=== PATIENT | female | born 1955 | race Caucasian/White ===

== ENCOUNTER → 2017-03-13 | Outpatient (CLI) | payer MEDICARE, OTHER ==
[2016-06-08 14:48] VITALS: BP 122/89
[~2017-03-13] MED LIST: ALBU2.5V5 NEB; ALPR0.5T6 PO; BUPR150T11 PO; CARI350T14 PO; DICL100G18 TP; DICY20TA30 PO; DOXY100T PO; FLUO40CA2 PO; GABA-586 PO; GABA-587 PO; GADOBUTROL 7.5 MMOL/7.5 ML VIAL IV ONE; HYDR-971 PO; IBUP-1007 PO; LIDO700A4 TP; METH5TAB6 PO; NAPR500T3; ONDA4TAB10 SL; OXYC15TA PO; OXYC5TAB PO; VALA1000 PO
--- NOTE | 2017-03-13 17:03 | RAD ---
MRI of the cervical spine without and with contrast 03/13/2017 CLINICAL HISTORY: Extremity weakness, right greater than left with history of neck fusion. Technique: Unenhanced T1-weighted, T2-weighted and inversion recovery sagittal and gradient echo, T2-weighted and T1-weighted axial images of the cervical spine were obtained. After the intravenous administration of 6 cc of Gadavist, enhanced T1-weighted sagittal and axial images of the cervical spine were obtained. FINDINGS: Comparison is made to a CT scan of the cervical spine dated 05/30/2016. There is reversal of the normal cervical lordosis. The patient is status post laminectomy at C1. Magnetic susceptibility artifact related to stabilizing rods and plates and pedicle screws are seen extending from the posterior C2 vertebrae, superiorly, unchanged. The patient is status post laminectomy extending from C3-4 to T1. Marked loss of height of the C5-6 and C7-T1 disc spaces is again seen. Degenerative signal changes are seen involving all the disks of the cervical spine. Degenerative signal changes are seen within the marrow surrounding these discs. No definite area of abnormal signal intensity is seen involving the cervical spinal cord. At the C2-3 disc space there is a minimal generalized disc bulge. Degenerative changes are seen involving the facet joints and uncovertebral joints bilaterally. These findings do not result in significant central spinal canal or neural foraminal stenosis. At the C3-4 disc space there is a moderate generalized disc bulge. Degenerative changes are seen involving the uncovertebral and facet joints bilaterally. Hypertrophy of the soft tissues posterior to the cervical spinal cord is seen. These findings efface the anterior and posterior CSF resulting in moderate central spinal canal stenosis with moderate cord impingement. The fusion superior to this along with the reversed cervical lordosis and central spinal canal stenosis causes the cervical spinal cord to be kinked at this level. Mild bilateral neural foraminal stenosis is seen. At the C4-5 disc space there is a mild generalized disc bulge. Degenerative changes are seen involving the uncovertebral and facet joints, right greater than left. These findings do not result in significant central spinal canal stenosis. No neural foraminal stenosis is seen. At the C5-6, C6-7 and C7-T1 disc spaces there are minimal generalized disc bulges. Degenerative changes are seen involving the uncovertebral and facet joints. These findings do not result in significant central spinal canal or neural foraminal stenosis. IMPRESSION: 1. Extensive postsurgical changes are seen involving the cervical spine as outlined above. 2. Degenerative changes are seen involving the cervical spine. These findings result in moderate central spinal canal stenosis with moderate cord impingement at C3-4. Mild bilateral neural foraminal stenosis is seen at C3-4. Electronically signed by: Hieu Mendoza MD (03/13/2017 4:59 PM)
== END | disposition home or self-care (01) ==
LOC: MRI 14:17
PROVIDERS: ATTEND Family Medicine
DX: M46.20 Osteomyelitis of vertebra, site unspecified (principal); R29.898 Other symptoms and signs involving the musculoskeletal system; R20.0 Anesthesia of skin; R20.2 Paresthesia of skin; J44.9 Chronic obstructive pulmonary disease, unspecified; J45.909 Unspecified asthma, uncomplicated; Z87.19 Personal history of other diseases of the digestive system
CPT/HCPCS: 72156; A9585

== ENCOUNTER 2017-03-17 09:11 | Observation (INO) | payer MEDICARE, OTHER ==
[~2017-03-17] VITALS: Ht 160 cm; Wt 50.8 kg
[~2017-03-17 09:11] MED LIST changes: -GABA-587 PO; -GADOBUTROL 7.5 MMOL/7.5 ML VIAL IV ONE; -NAPR500T3; -OXYC5TAB PO; -VALA1000 PO
[2017-03-17] MEDS ORDERED: GABA-587 PO (09:25)
[2017-03-17] MEDS ORDERED: MORPHINE SULFATE 4 MG/ML DISP.SYRIN. IV ONE (09:45)
[2017-03-17] MEDS ORDERED: ONDANSETRON PF 4 MG/2 ML VIAL. IV ONE (09:45)
[2017-03-17 10:02] LABS: POTASSIUM ISTAT 4.5 mmol/L (3.5-5.0)
[2017-03-17] MEDS ORDERED: DEXAMETHASONE SOD PHOS 20 MG/5 ML VIAL. IV ONE (10:15)
--- NOTE | 2017-03-17 10:30 | PHYS DOC ---
Past Medical History Past Medical History: Asthma, Hepatitis Additional Past Medical Histor: HEPATITIS C, HYPOTHYROID, DDD, CHRONIC BACK PAIN Past Surgical History: Additional Past Surgical Histo: BACK/NECK Alcohol Use: None Drug Use: None Adult General Chief Complaint Chief Complaint: Neck Pain HPI HPI Patient is a 61 year old female who presents with neck pain, upper extremity weakness and ataxia, left foot weakness and numbness. Pt's had multiple problems with her neck and back in the past, h/o laminectomy of her neck and also procedures to the lower. Pt awoke this morning with "worse pain I've ever had" at the base of the neck and to bilateral arms. She has numbness and tingling to bilateral arms, which she reports is new. She also has difficulty moving her arms in coordinated fashion, which is also new. She also has worsening numbness of her left medial distal foot. Reports her "normal" ataxia is worse today. Review of Systems Review of Systems Constitutional: Denies fever or chills [] Eyes: Denies change in visual acuity, redness, or eye pain [] HENT: Denies nasal congestion or sore throat [] Respiratory: Denies cough or shortness of breath [] Cardiovascular: denies chest pain GI: Denies abdominal pain, nausea, vomiting, bloody stools or diarrhea [] : Denies dysuria or hematuria [] Musculoskeletal: Denies joint pain [] Integument: Denies rash or skin lesions [] Neurologic: Denies headache Endocrine: Denies polyuria or polydipsia [] Current Medications Current Medications Current Medications Medications (Trade) Dose Ordered Sig/[facility] Start Time Stop Time Status Last Admin Dose Admin Morphine Sulfate 4 mg 1X ONCE 03/17/17 09:45 03/17/17 09:46 DC 03/17/17 10:05 4 MG Ondansetron HCl (Zofran) 4 mg 1X ONCE 03/17/17 09:45 03/17/17 09:46 DC 03/17/17 10:05 4 MG Allergies Allergies Allergies Coded Allergies Type Severity Reaction Last Updated Verified I S O L A T I O N *CONTACT* Allergy Unknown 02/09/16 Yes No Known Medication Allergies Allergy Unknown 02/09/16 Yes Physical Exam Physical Exam Constitutional: Well developed, well nourished, no acute distress, non-toxic appearance. [] HENT: Normocephalic, atraumatic, bilateral external ears normal, oropharynx moist, no oral exudates, nose normal. [] Eyes: PERRLA, EOMI, conjunctiva normal, no discharge. [] Neck: diffuse lower spine ttp without stepoffs, straightening Cardiovascular:Heart rate regular with regular rhythm, no murmur [] Lungs & Thorax: Bilateral breath sounds clear to auscultation [] Abdomen: Bowel sounds normal, soft, no tenderness, no masses, no pulsatile masses. [] Skin: Warm, dry, no erythema, no rash. [] Back: No midline tenderness, straigtening of normal lordosis, no CVA tenderness. [] Extremities: No tenderness, no cyanosis, no clubbing, ROM intact, no edema. [] Neurologic: Alert and oriented X 3, normal motor function, normal sensory function, no focal deficits noted. [] Psychologic: Affect normal, judgement normal, mood normal. [] Current Patient Data Vital Signs Vital Signs Date Time Temp Pulse Resp B/P (MAP) Pulse Ox O2 Delivery O2 Flow Rate FiO2 03/17/17 09:43 86 24 121/75 (90) 98 Room Air 03/17/17 09:14 99.2 99.2 Lab Values Laboratory Tests Test 03/17/17 09:55 POC Hemoglobin 12.9 g/dL (12-15) POC Hematocrit 38 % (36-40) POC Sodium 140 mmol/L (135-145) POC Potassium 4.5 mmol/L (3.5-5.0) POC Chloride 106 mmol/L (98-110) POC Total CO2 24 mmol/L (23-32) Anion Gap 15 mmol/L (6-14) H POC Blood Urea Nitrogen 18 mg/dL (8-26) POC Creatinine 0.7 mg/dL (0.5-1.4) Glucose Level 95 mg/dL (70-99) POC Ionized Calcium (Alisson) 1.14 mmol/L (1.13-1.32) Laboratory Tests 03/17/17 09:55 EKG EKG [] Radiology/Procedures Radiology/Procedures Reviewed prior MRI CT[] Course & Med Decision Making Course & Med Decision Making Pertinent Labs and Imaging studies reviewed. (See chart for details) Pt give IV morphine for pain. Discussed with Dr. Baig, neurosurgery head refrigeration engineer, as pt does not actively have a neurosurgeon she is following with. As pt is having new neurologic symptoms reported, recommends monitoring here or transfer to . I discussed with the patient and she wants to stay at our hospital for further treatment. Pt given IV dexamethasone, I discussed with Dr. Crawley, who accepted the pt for Dr. Corey. Pt to get po pain meds while inpt and asks for PT evaluation. Interim orders placed. Dragon Disclaimer Dragon Disclaimer This electronic medical record was generated, in whole or in part, using a voice recognition dictation system. Departure Departure Impression: Primary Impression: Neck pain Disposition: ADMITTED INPATIENT Admitting Physician: Onur Cameron Condition: STABLE Referrals: ONUR COREY MD (PCP) ODILON VLEEZ MD Mar 17, 2017 10:30
[2017-03-17 10:50] VITALS: BP 105/63
--- NOTE | 2017-03-17 12:12 | ACF ---
Admission Forms Criteria PAIN MANAGEMENT GR Clinical Indications for Admission to Inpatient Care (Place 'X' for any and all applicable criteria): Hospital admission is needed for appropriate care of the patient because of 1 or more of the following are present (1)(2)(3)(4)(5): [X]I. Severe pain requiring acute inpatient management as indicated by 1 or more of the following (2)(5)(10): [X]a) Continuous or frequent (eg, every 2 to 4 hours) parenteral analgesics required [A] [ ]b) Necessity (ie, alternative approaches not effective) for analgesic regimen that can only be performed or initiated in inpatient setting [ ]II. Pain causing debilitation to the point of inability to function or be supported at any other level of care [ ]III. Severe side effects from pain medications as indicated by ANY ONE of the following (12)(13)(14)(15): [ ]a) Uncontrollable seizures [ ]b) Cardiac arrhythmias of immediate concern [ ]c) Dehydration that is severe or persistent [ ]d) Vomiting that is severe or persistent [ ]e) Altered mental status that is severe or persistent [ ]f) Obstipation with inadequate GI function to maintain nutrition The original [employer] content created by [employer] has been revised. The portions of the content which have been revised are identified through the use of italic text or in bold, and [employer] has neither reviewed nor approved the modified material. All other unmodified content is copyright [employer]. Please see references footnoted in the original [employer] edition 2016 Admission Criteria Met?: Yes AVINASH LEYVA Mar 17, 2017 12:12
--- NOTE | 2017-03-17 13:02 | PDOC2 ---
CONSULT Date of Consult Date of Consult DATE: 03/17/17 TIME: 12:59 Reason for Consult Reason for Consult: cervical stenosis History of Present Illness Reason for Visit: bilateral hand numbness, increased posterior neck and periscapular pain, difficulty with fine motor in hands, chronic gait disturbance - feels may be slightly worse, denies bowel/bladder changes, subjective functional weakness, denies discrete focal weakness Past Medical History Cardiovascular: HTN Pulmonary: Asthma CENTRAL NERVOUS SYSTEM: Other GI: No pertinent hx Heme/Onc: No pertinent hx Hepatobiliary: Hep A/B/C Psych: Anxiety, Depression Musculoskeletal: low back pain Rheumatologic: No pertinent hx Renal/: No pertinent hx Endocrine: Other Past Surgical History Past Surgical History: Other Family History Family History: Asthma, Cancer, Depression, Diabetes, Heart Disease, Hypertension Social History ALCOHOL: none Drugs: Other Current Problem List Problem List Problems Medical Problems: (1) Neck pain Status: Acute Current Medications Current Medications Current Medications Morphine Sulfate 4 mg 1X ONCE IV Last administered on 03/17/17 10:05; Start at 09:45; Stop 03/17/17 at 09:46; Status DC Ondansetron HCl (Zofran) 4 mg 1X ONCE IV Last administered on 03/17/17 10:05; Start 03/17/17 at 09:45; Stop 03/17/17 at 09:46; Status DC Dexamethasone Sodium Phosphate (Decadron) 10 mg 1X ONCE IV Last administered on 03/17/17 10:05; Start 03/17/17 at 10:15; Stop 03/17/17 at 10:16; Status DC Oxycodone HCl (Roxicodone) 5 mg PRN Q6HRS PRN PO PAIN; Start 03/17/17 at 10:15 Active Scripts Active Gabapentin 300 Mg Capsule 900 Mg PO TID 30 Days Doxycycline Hyclate 100 Mg Tablet 100 Mg PO BID 30 Days Albuterol Sulfate Neb Soln (Albuterol Sulfate) 2.5 Mg/3 Ml Vial.neb 2.5 Mg NEB PRN Q4HRS PRN 30 Days Zofran Odt (Ondansetron) 4 Mg Tab.rapdis 1 Tab SL Q8HRS PRN Bentyl (Dicyclomine Hcl) 20 Mg Tablet 20 Mg PO QID Reported Gabapentin 400 Mg Capsule 400 Mg PO TID Voltaren (Diclofenac Sodium) 100 Gm Gel..gram. 1 Gm TP QID Oxycodone Hcl 15 Mg Tablet 1 Tab PO QID PRN Methimazole 5 Mg Tablet 5 Mg PO BID Lidoderm (Lidocaine) 700 Mg Adh..patch 1 Patch TP BID Ibuprofen 600 Mg Tablet 600 Mg PO BID Fluoxetine Hcl 40 Mg Capsule 1 Cap PO DAILY Carisoprodol 350 Mg Tablet 1 Tab PO TID Bupropion Hcl Sr (Bupropion Hcl) 150 Mg Tablet.er 0.5 Tab PO DAILY Alprazolam 0.5 Mg Tablet 0.5 Mg PO PRN Q8HRS PRN Allergies Allergies: Coded Allergies: I S O L A T I O N *CONTACT* (Verified Allergy, Unknown, 02/09/16) mrsa + urine No Known Medication Allergies (Verified Allergy, Unknown, 02/09/16) Physical Exam General: Alert, Oriented X3, Cooperative, No acute distress HEENT: Atraumatic, PERRLA, EOMI Lungs: Other (respirations even and nonlabored) Vitals VITALS Vital Signs Date Time Temp Pulse Resp B/P (MAP) Pulse Ox O2 Delivery O2 Flow Rate FiO2 03/17/17 10:50 16 95 Room Air 03/17/17 10:15 88 135/82 (99) 03/17/17 09:14 99.2 99.2 Labs Labs Laboratory Tests Test 03/17/17 09:55 Bedside Hemoglobin 12.9 g/dL (12-15) Bedside Hematocrit 38 % (36-40) Bedside Sodium 140 mmol/L (135-145) Bedside Potassium 4.5 mmol/L (3.5-5.0) Bedside Chloride 106 mmol/L (98-110) Bedside Total CO2 24 mmol/L (23-32) Anion Gap 15 mmol/L (6-14) Bedside Blood Urea Nitrogen 18 mg/dL (8-26) Bedside Creatinine 0.7 mg/dL (0.5-1.4) Glucose Level 95 mg/dL (70-99) Bedside Ionized Calcium (Alisson) 1.14 mmol/L (1.13-1.32) Laboratory Tests Test 03/17/17 09:55 Bedside Hemoglobin 12.9 g/dL (12-15) Bedside Hematocrit 38 % (36-40) Bedside Sodium 140 mmol/L (135-145) Bedside Potassium 4.5 mmol/L (3.5-5.0) Bedside Chloride 106 mmol/L (98-110) Bedside Total CO2 24 mmol/L (23-32) Anion Gap 15 mmol/L (6-14) Bedside Blood Urea Nitrogen 18 mg/dL (8-26) Bedside Creatinine 0.7 mg/dL (0.5-1.4) Glucose Level 95 mg/dL (70-99) Bedside Ionized Calcium (Alisson) 1.14 mmol/L (1.13-1.32) Assessment/Plan Assessment/Plan MRI reviewed, stenosis caudal to prior instrumented fusion, streak artifact from instrumentation, acquire cervical CT myelogram to further assess SHARATH BUTTS MD Mar 17, 2017 13:02
[2017-03-17] MEDS ORDERED: IOHEXOL 300 MG/ML 10ML VIAL. IT ONE ×3 (13:15→13:45)
[2017-03-17] MEDS ORDERED: CONTRAST GIVEN MC PRN (13:30)
[2017-03-17] MEDS: oxyCODONE IR 5 MG TABLET PO PRN ×2 (13:56→23:51)
[2017-03-17 15:00] VITALS: BP 105/66
--- NOTE | 2017-03-17 15:38 | RAD ---
Indication neck pain. Cervical myelogram was requested. Myelography was explained to the patient. The risks of infection and bleeding were outlined. The possibility of postprocedure headache necessitating placement of a blood patch was discussed. The possibility of worsening of symptoms, damage to nerve roots or the small possibility of seizure was discussed. The patient understood the risks associated with the procedure and wished to proceed. The skin was prepped and draped in the routine fashion. Under fluoroscopic guidance and using a left para midline approach the subarachnoid space was punctured at L3 with a 20-gauge spinal needle. Minimally bloody CSF was encountered. 11 cc of Omnipaque 300 was injected. Multiple spot films were obtained as well as a lateral view and a swimmer's view. 11 fluoroscopic spot images were obtained. Fluoroscopy time associated with this study was 2.5 minutes. Following the myelogram post myelogram CT images were obtained through the cervical spine and reformatted in the coronal and sagittal planes. The patient had some discomfort during the myelographic procedure but generally tolerated the examination well. CT myelogram findings. There is narrowing of the contrast column at C4-5 with more significant narrowing and at C3-4 with only a trickle of contrast cephalad to C3-4.. Postoperative changes are noted involving the occipital bone and posterior elements at C2. Post mammogram CT findings Postlaminectomy changes are seen extending from C6 through T1. There is some kinking of the cervical spinal cord extending from C2-3 through C4-5. There is fusion of the C5-6 vertebral bodies and significant disc space narrowing at C7-T1 with partial fusion at this level. The cervical spinal cord appears to be intrinsically normal. No significant canal narrowing at C2-3. There is marked spinal stenosis at C3-4 with some associated bilateral foraminal narrowing. The canal diameter at C4-5 is slightly narrowed.. There is no marked bony foraminal encroachment at this level. There is no spinal stenosis at C5-6 or significant neural foraminal encroachment. C6-7 appears unremarkable and C7-T1 appears normal. IMPRESSION: Cervical myelogram and post myelogram CT demonstrating significant spinal stenosis with some associated foraminal encroachment at C3-4. There is mild canal narrowing at C4-5 PQRS Compliance Statement: One or more of the following individualized dose reduction techniques were utilized for this examination: 1. Automated exposure control 2. Adjustment of the mA and/or kV according to patient size 3. Use of iterative reconstruction technique
[2017-03-17 19:30] VITALS: BP 80/34
[2017-03-17 20:10] VITALS: BP 96/65
[2017-03-17 23:18] VITALS: BP 100/70
[2017-03-18 03:27] VITALS: BP 93/47
[2017-03-18 07:00] VITALS: BP 105/76
[2017-03-18] MEDS: oxyCODONE IR 5 MG TABLET PO PRN ×2 (07:35→14:45)
[2017-03-18] MEDS: GABAPENTIN 400 MG CAPSULE. PO SCH ×2 (08:09→13:16)
[2017-03-18] MEDS ORDERED: VALA1000 PO (08:16)
[2017-03-18] MEDS ORDERED: NAPR500T3 (10:39)
[2017-03-18 11:00] VITALS: BP 105/67
[2017-03-18] MEDS ORDERED: OXYC5TAB PO (11:42)
[2017-03-18] MEDS ORDERED: ALBUTEROL SULFATE 2.5 MG/3 ML NEBU. NEB PRN (11:45)
[2017-03-18] MEDS ORDERED: NAPROXEN 500 MG TABLET PO SCH (11:45)
[2017-03-18] MEDS ORDERED: ALPRAZolam 0.5 MG TABLET PO PRN (11:45)
[2017-03-18] MEDS ORDERED: predniSONE 20 MG TABLET PO ONE (11:45)
--- NOTE | 2017-03-18 11:59 | PDOC ---
SUBJECTIVE Subjective Denies acute changes. Primary complaint is posterior neck and parascapular pain. OBJECTIVE Objective CT myelogram: Moderate stenosis noted just caudal to OC construct at C3-4. No acute changes. Vital Signs Vital Signs Date Time Temp Pulse Resp B/P (MAP) Pulse Ox O2 Delivery O2 Flow Rate FiO2 03/18/17 11:00 97.9 78 20 105/67 (80) 97 Room Air 97.9 03/18/17 08:40 Room Air 03/18/17 07:50 Room Air 03/18/17 07:35 Room Air 03/18/17 07:00 97.7 73 16 105/76 (86) 98 Room Air 97.7 03/18/17 03:27 97.9 73 18 93/47 (62) 98 Room Air 97.9 03/17/17 23:51 16 95 03/17/17 23:18 97.9 93 18 100/70 (80) 95 Room Air 97.9 03/17/17 20:10 81 96/65 (75) 03/17/17 19:30 98.1 77 18 80/34 (49) 95 Room Air 98.1 03/17/17 15:00 98.1 87 20 105/66 (79) 96 Room Air 98.1 03/17/17 14:56 16 96 Room Air 03/17/17 13:56 16 96 03/17/17 10:50 97.9 79 20 105/63 (77) 97 Room Air 97.9 03/17/17 10:50 97.9 79 20 105/63 (77) 97 Room Air 97.9 03/17/17 10:50 16 95 Room Air 03/17/17 10:15 88 20 135/82 (99) 95 Room Air 03/17/17 10:05 16 95 Room Air I & O Intake and Output 03/18/17 08:59 Intake Total 920 ml Balance 920 ml Intake Oral 920 ml # Voids 3 PHYSICAL EXAM Physical Exam AAOx4, anxious, HUANG 5/5, sensation intact LT ASSESSMENT/PLAN Assessment/Plan 61F with cervical stenosis -no immediate surgery but may benefit from decompression at some point which would likely require extension of OC construct -may benefit from therapy for neck pain -may benefit from pain management -brief steroid taper may benefit as well -she reports that she has an appointment soon with a neurosurgeon at [facility] where she had her prior surgery and wishes to follow-up with that person as scheduled Problems: SHARATH BUTTS MD Mar 18, 2017 11:59
[2017-03-18] MEDS ORDERED: valACYclovir 500 MG TABLET. PO SCH ×2 (12:00→13:14)
[2017-03-18] MEDS ORDERED: buPROPion 75 MG TABLET. PO SCH (12:00)
[2017-03-18] MEDS ORDERED: FLUoxetine HCL 20 MG CAPSULE PO SCH (12:00)
--- NOTE | 2017-03-18 12:09 | PDOC1 ---
History and Physical Date of Admission Date of Admission DATE: 03/17/17 Identification/Chief Complaint Chief Complaint Numbness and tingling R UE and hand. Problems: History of Present Illness History of Present Illness Patient is a 61 year old female who presented to ER with the above complaint. She was initially seen by Dr Corey in our office on 03/11/17 with this concern. Patient does have an extensive history of degenerative disc disease and degenerative joint disease of the lumbar and cervical spine. An MRI of the cervical spine was done and showed moderate cord impingement and moderate central canal stenosis. She was advised to follow up with Neurosurgery at but before she could be seen there her symptoms worsened and she came to the ER. Dr Baig was consulted and the patient was admitted for further treatment. Past Medical History Pulmonary: Asthma, COPD CENTRAL NERVOUS SYSTEM: Other (Cervical and lumbar degenerative disc and degenerative joint disease) GI: No pertinent hx Heme/Onc: No pertinent hx Hepatobiliary: Other (Hepatitis C, not treated) Psych: Anxiety, Addictions (history of IV drug use), Depression Musculoskeletal: low back pain Rheumatologic: No pertinent hx Infectious disease: Other (Previous epidural abscess) Renal/: No pertinent hx Endocrine: Other (hyperthyroidism) Past Surgical History Past Surgical History: Other (cervical and lumbar fusions) Family History Family History: Asthma, Cancer, Depression, Diabetes, Heart Disease, Hypertension Social History Smoke: <1 pack per day ALCOHOL: none Drugs: Other (IV drug use) Current Problem List Problem List Problems Medical Problems: (1) Neck pain Status: Acute Problems: Current Medications Current Medications Current Medications Morphine Sulfate 4 mg 1X ONCE IV Last administered on 03/17/17 10:05; Start at 09:45; Stop 03/17/17 at 09:46; Status DC Ondansetron HCl (Zofran) 4 mg 1X ONCE IV Last administered on 03/17/17 10:05; Start 03/17/17 at 09:45; Stop 03/17/17 at 09:46; Status DC Dexamethasone Sodium Phosphate (Decadron) 10 mg 1X ONCE IV Last administered on 03/17/17 10:05; Start 03/17/17 at 10:15; Stop 03/17/17 at 10:16; Status DC Oxycodone HCl (Roxicodone) 5 mg PRN Q6HRS PRN PO PAIN Last administered on 23:51; Start 03/17/17 at 10:15; Stop 03/17/17 at 23:51; Status DC Iohexol (Omnipaque 300 Mg/ml) 10 ml 1X ONCE IT ; Start 03/17/17 at 13:15; Stop 03/17/17 at 13:19; Status DC Iohexol (Omnipaque 300 Mg/ml) 10 ml 1X ONCE IT ; Start 03/17/17 at 13:15; Stop 03/17/17 at 13:19; Status DC Info (Do NOT chart on this entry -- for MONITORING) 1 each PRN DAILY PRN MC SEE COMMENTS; Start 03/17/17 at 13:30; Stop 03/19/17 at 13:29 Iohexol (Omnipaque 300 Mg/ml) 20 ml 1X ONCE IT Last administered on 03/17/17 13:25; Start 03/17/17 at 13:45; Stop 03/17/17 at 13:46; Status DC Oxycodone HCl (Roxicodone) 5 mg PRN Q6HRS PRN PO PAIN Last administered on 07:35; Start 03/18/17 at 02:00 Gabapentin (Neurontin) 400 mg TID PO Last administered on 03/18/17 08:09; Start 03/18/17 at 09:00 Albuterol Sulfate (Ventolin Neb Soln) 2.5 mg PRN Q4HRS PRN NEB SHORTNESS OF BREATH; Start 03/18/17 at 11:45 Alprazolam (Xanax) 0.5 mg PRN Q8HRS PRN PO ANXIETY / AGITATION; Start 03/18/17 at 11:45 Bupropion HCl (Wellbutrin Sr) 75 mg DAILY PO ; Start 03/19/17 at 09:00; Status UNV Carisoprodol (Soma) 350 mg TID PO ; Start 03/18/17 at 14:00 Naproxen (Naprosyn) 500 mg BID PO ; Start 03/18/17 at 11:45 Non-Formulary Medication 1 cap DAILY PO ; Start 03/19/17 at 09:00; Status UNV Non-Formulary Medication 1,000 mg DAILY PO ; Start 03/19/17 at 09:00; Status UNV Prednisone (Prednisone) 20 mg 1X ONCE PO ; Start 03/18/17 at 11:45; Stop at 11:46; Status UNV Active Scripts Active Oxycodone Hcl 5 Mg Tablet 1 Tab PO QID Albuterol Sulfate Neb Soln (Albuterol Sulfate) 2.5 Mg/3 Ml Vial.neb 2.5 Mg NEB PRN Q4HRS PRN 30 Days Reported Naproxen 500 Mg Tablet 500 Valacyclovir (Valacyclovir Hcl) 1,000 Mg Tablet 1,000 Mg PO DAILY Gabapentin 400 Mg Capsule 400 Mg PO TID Fluoxetine Hcl 40 Mg Capsule 1 Cap PO DAILY Carisoprodol 350 Mg Tablet 1 Tab PO TID Bupropion Hcl Sr (Bupropion Hcl) 150 Mg Tablet.er 0.5 Tab PO DAILY Alprazolam 0.5 Mg Tablet 0.5 Mg PO PRN Q8HRS PRN Allergies Allergies: Coded Allergies: I S O L A T I O N *CONTACT* (Verified Allergy, Unknown, 02/09/16) mrsa + urine No Known Medication Allergies (Verified Allergy, Unknown, 02/09/16) ROS General: YES: Other (denies fevers or chills) PSYCHOLOGICAL ROS: YES: Anxiety (chronic), Depression (chronic) ENDOCRINE: YES: Other (no longer taking medication for hyperthyroidism) Respiratory: YES: Other (some chronic cough and SOA, uses Albuterol MDI as needed which does help. Not interested in smoking cessation at this time.) Cardiovascular: yes Other (denies chest pain or palpitations) Gastrointestinal: Yes Other (denies abdominal pain, nausea or vomiting. 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) Psych/Mental Status: Other (somewhat tearful and anxious) Vitals Vitals Vital Signs Date Time Temp Pulse Resp B/P (MAP) Pulse Ox O2 Delivery O2 Flow Rate FiO2 03/18/17 11:00 97.9 78 20 105/67 (80) 97 Room Air 97.9 Labs Labs Laboratory Tests Test 03/17/17 09:55 Bedside Hemoglobin 12.9 g/dL (12-15) Bedside Hematocrit 38 % (36-40) Bedside Sodium 140 mmol/L (135-145) Bedside Potassium 4.5 mmol/L (3.5-5.0) Bedside Chloride 106 mmol/L (98-110) Bedside Total CO2 24 mmol/L (23-32) Anion Gap 15 mmol/L (6-14) Bedside Blood Urea Nitrogen 18 mg/dL (8-26) Bedside Creatinine 0.7 mg/dL (0.5-1.4) Glucose Level 95 mg/dL (70-99) Bedside Ionized Calcium (Alisson) 1.14 mmol/L (1.13-1.32) VTE Prophylaxis Ordered VTE Prophylaxis Devices: No VTE Pharmacological Prophylaxi: No Assessment/Plan Assessment/Plan 1. Cervical stenosis - moderate as seen on myelogram done at admission. Dr Baig has seen the patient and advised that no immediate surgery is indicated. He recommends she follow up with the Neurosurgeons at as she has already received care there. She will be given a scrip for a Medrol dose pack to help with inflammation that could be contributing to her symptoms. Already taking a muscle relaxer and Naprosyn. 2. chronic anxiety and depression - continue home meds. 3. COPD - stable, continue Albuterol prn. Patient not interested in smoking cessation. 4. substance abuse - chart shows patient had received treatment for this in January , but UDS at last month was positive for Amphetamines and Cocaine. Patient received her usual monthly prescription for Oxycodone from our office last month and no refill is presently due. Avoiding IV narcotics while she is hospitalized. BROCK GARNER MD Mar 18, 2017 12:09
[2017-03-18] MEDS ORDERED: METH4TAB2 PO (12:12)
--- NOTE | 2017-03-18 12:21 | PDOC3 ---
Discharge Summary* Date of Admission: Mar 17, 2017 Date of Discharge: Mar 18, 2017 Admitting Diagnosis Problems Medical Problems: (1) Neck pain Status: Acute Problems: Final Diagnosis Problems Medical Problems: Cervical spine stenosis Status: Acute CONSULTS Dr Baig Procedures Cervical myelogram. Brief Hospital Course Ms. Muhammad is a 61 old female who came to the ER reporting increasing pain and numbness to her arms and especially right hand. MRI of the cervical spine as outpatient had showed cervical stenosis. A cervical myelogram was ordered, Dr Baig was consulted and patient was admitted for further care. Myelogram showed moderate central canal stenosis but Dr Baig felt that immediate surgical treatment was not indicated. He recommended a trial of steroids. Patient has been treated by Neurosurgery in the past and has an appointment with them scheduled later this month. Dr Baig recommended she follow up there and patient was in agreement with this. Patient will be continued on po pain meds, NSAID and muscle relaxer. Her exam remained stable and her pain was controlled with po meds. She will be discharged with a prescription for a Medrol dose pack. Patient has a significant and recent history of drug abuse so an increase in pain meds is not recommended. Patient's chronic medical problems including anxiety, depression and COPD remained stable and she will continue her usual meds for these. Disposition/Orders: D/C to a Senior Living CONDITION AT DISCHARGE: Stable Scheduled Bupropion Hcl (Bupropion Hcl Sr), 0.5 TAB PO DAILY, (Reported) Carisoprodol (Carisoprodol), 1 TAB PO TID, (Reported) Fluoxetine Hcl (Fluoxetine Hcl), 1 CAP PO DAILY, (Reported) Gabapentin (Gabapentin), 400 MG PO TID, (Reported) Oxycodone Hcl (Oxycodone Hcl), 1 TAB PO QID Valacyclovir Hcl (Valacyclovir), 1,000 MG PO DAILY, (Reported) Scheduled PRN Albuterol Sulfate (Albuterol Sulfate Neb Soln), 2.5 MG NEB PRN Q4HRS PRN for SHORTNESS OF BREATH Alprazolam (Alprazolam), 0.5 MG PO PRN Q8HRS PRN for ANXIETY / AGITATION, ( Reported) Miscellaneous Medications Naproxen (Naproxen), 500, (Reported) Discontinued Medications Diclofenac Sodium (Voltaren), 1 GM TP QID, (Reported) Dicyclomine Hcl (Bentyl), 20 MG PO QID Doxycycline Hyclate (Doxycycline Hyclate), 100 MG PO BID Gabapentin (Gabapentin), 900 MG PO TID Ibuprofen (Ibuprofen), 600 MG PO BID, (Reported) Lidocaine (Lidoderm), 1 PATCH TP BID, (Reported) Methimazole (Methimazole), 5 MG PO BID, (Reported) Ondansetron (Zofran Odt), 1 TAB SL Q8HRS PRN for NAUSEA Oxycodone Hcl (Oxycodone Hcl), 1 TAB PO QID PRN for PAIN, (Reported) FOLLOW UP APPOINTMENT: Follow up with [facility] as scheduled. Follow up with Dr Corey (or new PCP) as needed. Time Spent Total time spent with patient [] minutes for coordination of care, counseling, and education. BROCK GARNER MD Mar 18, 2017 12:21
[2017-03-18] MEDS ORDERED: CARISOPRODOL 350 MG TABLET PO SCH (14:00)
[2017-03-19] MEDS ORDERED: valACYclovir 500 MG TABLET. PO SCH (09:00)
== END 2017-03-18 15:00 | disposition home or self-care (01) ==
LOC: ER 09:11 → 4 NORTH 09:55
PROVIDERS: ADMIT Family Medicine; ATTEND Family Medicine
DX: M48.02 Spinal stenosis, cervical region (principal); F41.9 Anxiety disorder, unspecified; F32.9 Major depressive disorder, single episode, unspecified; F14.10 Cocaine abuse, uncomplicated; F17.210 Nicotine dependence, cigarettes, uncomplicated; J45.909 Unspecified asthma, uncomplicated; J44.9 Chronic obstructive pulmonary disease, unspecified; M19.90 Unspecified osteoarthritis, unspecified site
CPT/HCPCS: 36415; 72126; 72240; 80047; 87641; 96374; 96375; 99285; G0378; J1100; J2270; J2405; J7512; Q9967; G0379